=== PATIENT | female | born 1975 | race Caucasian/White ===

== ENCOUNTER 2023-11-19 08:27 | Day surgery (SDC) | payer OTHER ==
[~2023-11-19] VITALS: Ht 165.1 cm; Wt 69.9 kg
[2023-11-19] MEDS ORDERED: MIDAZOLAM 2 MG/2 ML VIAL ONE (10:22)
[2023-11-19] MEDS ORDERED: fentaNYL citrate 0.05 MG/ML VIAL ONE (10:22)
[2023-11-19] MEDS: MIDAZOLAM 2 MG/2 ML VIAL IVP ONE (10:40)
[2023-11-19] MEDS: fentaNYL citrate 0.05 MG/ML VIAL IVP ONE (10:41)
[2023-11-19] MEDS: LIDOCAINE 2% 100 MG/5 ML UJET TP ONE (11:08)
== END 2023-11-19 12:15 | disposition home or self-care (01) ==
LOC: MOR 08:27 → MMU 08:28 → MOR 12:15
PROVIDERS: ATTEND Internal Medicine Gastroenterology
DX: R14.0 Abdominal distension (gaseous) (principal); R10.13 Epigastric pain; K44.9 Diaphragmatic hernia without obstruction or gangrene; K22.2 Esophageal obstruction; I10 Essential (primary) hypertension; E78.00 Pure hypercholesterolemia, unspecified
CPT/HCPCS: 36415; 43239; 45378; 86677; J2250; J3010